=== PATIENT | female | born 1985 | race Hispanic/Latino ===

== ENCOUNTER → 2022-07-27 | Day surgery (SDC) | payer BC, OTHER ==
[~2022-07-27] MED LIST: BUPIVACAINE HCL 0.5% INJ 30 ML VIAL INJ ONE; CEFAZOLIN SODIUM 2 GM ONE; CEPHALEXIN500 M1 PO; DEXAMETHASONE SOD PHOS INJ 4 MG/ML SDV ONE; FENTANYL CITRATE/PF 100MCG/2 ML INJ ONE; HYDROCODONE/APAP 5MG-325MG TAB ONE; KETOROLAC TROMETHAMINE 30 MG/ML VIAL ONE; LEVOCETIRIZINE D5 MG PO; LIDOCAINE 1% W/EPINEPHRINE 20 ML VIAL ONE; LIDOCAINE HCL 2% LOCAL INJ 5 ML SDV VIAL INJ ONE; MELOXICAM7.5 MG PO; MIDAZOLAM HCL 2 MG/2 ML VIAL ONE; NAPROXEN250 MG PO; ONDANSETRON HCL INJ 2MG/ML 2ML 2 MG/ML VIAL ONE; POVIDONE IODINE 0.05% 0.05 % ML PO ONE; PROPOFOL IV EMULSION 10 MG/ML 20 ML VIAL ONE; SINGULAIR10 MG PO; SPIRONOLACTONE100 MG PO; TYLENOL #3 PO; Vancomycin IV 1 GM VIAL ONE; ZOVIA 1-35E1 EACH PO; ZYRTEC10 M3 PO
[2022-07-27 13:40] VITALS: BP 141/95
== END | disposition home or self-care (01) ==
LOC: OR 06:48
PROVIDERS: ATTEND Orthopaedic Surgery
DX: S83.511A Sprain of anterior cruciate ligament of right knee, initial encounter (principal); S83.241A Other tear of medial meniscus, current injury, right knee, initial encounter; S83.281A Other tear of lateral meniscus, current injury, right knee, initial encounter; M22.41 Chondromalacia patellae, right knee; S83.411A Sprain of medial collateral ligament of right knee, initial encounter; M23.41 Loose body in knee, right knee; E66.01 Morbid (severe) obesity due to excess calories; W01.0XXA Fall on same level from slipping, tripping and stumbling without subsequent striking against object, initial encounter; Z91.018 Allergy to other foods; Z79.1 Long term (current) use of non-steroidal anti-inflammatories (NSAID)
CPT/HCPCS: 29882; 29888; 81025; C1713 ×2; C1729; C1769; J1100; J1885; J2001; J2250; J2405; J2704; J3010; J3370

== ENCOUNTER 2022-07-30 10:58 | Outpatient (RCR) | payer BC ==
[~2022-07-30 10:58] MED LIST changes: -BUPIVACAINE HCL 0.5% INJ 30 ML VIAL INJ ONE; -CEFAZOLIN SODIUM 2 GM ONE; -DEXAMETHASONE SOD PHOS INJ 4 MG/ML SDV ONE; -FENTANYL CITRATE/PF 100MCG/2 ML INJ ONE; -HYDROCODONE/APAP 5MG-325MG TAB ONE; -KETOROLAC TROMETHAMINE 30 MG/ML VIAL ONE; -LIDOCAINE 1% W/EPINEPHRINE 20 ML VIAL ONE; -LIDOCAINE HCL 2% LOCAL INJ 5 ML SDV VIAL INJ ONE; -MIDAZOLAM HCL 2 MG/2 ML VIAL ONE; -ONDANSETRON HCL INJ 2MG/ML 2ML 2 MG/ML VIAL ONE; -POVIDONE IODINE 0.05% 0.05 % ML PO ONE; -PROPOFOL IV EMULSION 10 MG/ML 20 ML VIAL ONE; -Vancomycin IV 1 GM VIAL ONE
== END 2022-07-31 ==
LOC: PT 10:58
PROVIDERS: ATTEND Orthopaedic Surgery
DX: M25.561 Pain in right knee (principal)

== ENCOUNTER 2022-08-08 14:54 | Outpatient (RCR) | payer BC | END 2022-08-31 | LOC: PT 14:54 | PROVIDERS: ATTEND Orthopaedic Surgery | DX: M25.561 Pain in right knee (principal) | CPT/HCPCS: 97010 ×7; 97110 ×9; G0283 ×6 ==

== ENCOUNTER 2022-09-03 09:22 | Outpatient (RCR) | payer BC | END 2022-09-30 | LOC: PT 09:22 | PROVIDERS: ATTEND Orthopaedic Surgery | DX: S83.511D Sprain of anterior cruciate ligament of right knee, subsequent encounter (principal); M25.561 Pain in right knee; M62.81 Muscle weakness (generalized); R26.2 Difficulty in walking, not elsewhere classified ==

== ENCOUNTER 2022-10-02 08:43 | Outpatient (RCR) | payer BC | END 2022-10-31 | LOC: PT 08:43 | PROVIDERS: ATTEND Orthopaedic Surgery | DX: S83.511D Sprain of anterior cruciate ligament of right knee, subsequent encounter (principal); M25.561 Pain in right knee; M62.81 Muscle weakness (generalized); R26.2 Difficulty in walking, not elsewhere classified ==